=== PATIENT | male | born 1980 ===

== ENCOUNTER 2023-09-22 15:19 | Outpatient (CLI) | payer BC, SELFPAY ==
--- NOTE | 2023-09-22 15:15 | USCV_ITS ---
Sam Brink Age: 43 Gender: M : 1980 Exam Date: 09/22/2023 15:33 Ordering Phys: Jimbo Mendoza NP Technologist: MINESH [place] [facility] [place]: LVH per EKG, chest pressure BP: / HR: 75 Rhythm: Sinus Technical Quality: Good MEASUREMENTS (Male / Female) Normal Values 2D ECHO LV Diastolic Diameter PLAX 4.8 cm 4.2 - 5.9 / 3.9 - 5.3 cm LV Systolic Diameter PLAX 2.3 cm IVS Diastolic Thickness 1.1 cm 0.6 - 1.0 / 0.6 - 0.9 cm IVS Systolic Thickness 1.6 cm LVPW Diastolic Thickness 0.9 cm 0.6 - 1.0 / 0.6 - 0.9 cm LVPW Systolic Thickness 2.0 cm LVOT Diameter 2.0 cm LV Ejection Fraction 2D Teich 83.5 % LV Ejection Fraction MOD 2C 77.4 % LV Ejection Fraction 2C AL 78.4 % LA Diameter 2.7 cm LA Width 2.4 cm LA Height 3.9 cm RA Width 3.5 cm RA Height 4.3 cm Aorta at Sinotubular Diameter 2.9 cm IVC Diameter 1.3 cm M-MODE Aortic Annulus Diameter 3.3 cm LA Ao Ratio MM 1.0 MV E Point Septal Separation 0.6 cm DOPPLER AV Peak Velocity 121.0 cm/s LVOT Peak Velocity 113.0 cm/s AV Area Cont Eq vti 2.6 cm squared AV Area Cont Eq pk 3.0 cm squared MV Peak Velocity 64.0 cm/s MV Area PHT 3.1 cm squared Mitral E to A Ratio 1.1 MV E' Velocity 36.0 cm/s Mitral E to MV E' Ratio 4.7 Mitral E to LV E' Lateral Ratio 3.8 Mitral E to LV E' Septal Ratio 6.0 TR Peak Velocity 89.5 cm/s TR Peak Gradient 3.2 mmHg Right Atrial Pressure 5.0 mmHg Pulmonary Artery Systolic Pressu 8.2 mmHg PV Peak Velocity 111.0 cm/s RV Acceleration Time 0.1 s RV Ejection Time 0.3 s RV AcT/ET 0.5 FINDINGS Left Ventricle Left ventricle is normal in size. LV systolic function is normal with EF of 55-60%. No regional wall motion abnormalities. Right Ventricle Normal in size and function Right Atrium Normal in size Left Atrium Normal in size Mitral Valve Structurally normal mitral valve. Trace mitral regurgitation. Aortic Valve Structurally normal aortic valve. No significant stenosis or regurgitation Tricuspid Valve Mild tricuspid regurgitation. Insufficient TR jet to calculate RVSP Pulmonic Valve Not well visualized Pericardium Grossly normal Aorta Normal in size IVC Appears to be normal CONCLUSIONS LV systolic function is normal with EF of 55-60% Trace mitral regurgitation Mild tricuspid regurgitation No comparison studies are available. Freddie Ochoa MD (Electronically Signed) Final Date: 26 September 2023 17:19 S
== END 2023-09-22 15:20 | disposition home or self-care (01) ==
LOC: RAD 15:19
PROVIDERS: PCP Clinical Nurse Specialist Adult Health; Visit Provider Clinical Nurse Specialist Adult Health
DX: R07.89 Other chest pain (principal); I07.1 Rheumatic tricuspid insufficiency
CPT/HCPCS: 93306